=== PATIENT | female | born 1945 | race Caucasian/White ===

== ENCOUNTER 2022-07-09 11:10 | Inpatient (IN) | payer MEDICARE, OTHER ==
[~2022-07-09] VITALS: Ht 167.6 cm; Wt 72.8 kg
[2022-07-09] MEDS ORDERED: SODIUM CHLORIDE 0.9% 1000ML 1,000 ML ONE (11:44)
[2022-07-09] MEDS ORDERED: SODIUM CHLORIDE 0.9% 1000ML 1,000 ML IV ONE (12:00)
[2022-07-09 12:57] LABS: ALBUMIN/GLOBULIN RATIO 0.8 (0.8-2.0); BILIRUBIN,DIRECT 0.7 mg/dL (0.0-0.5); CREATININE, SERUM 0.66 mg/dL (0.57-1.11)
[2022-07-09 12:59] LABS: CALCIUM 6.6 mg/dL (8.4-10.2)
[2022-07-09 13:03] LABS: CREATINE KINASE MB 1.8 ng/mL (0-5.0)
[2022-07-09] MEDS ORDERED: IOPAMIDOL 370 MG/ML 100 ML INFUS..BTL INJ ONE (13:57)
[2022-07-09 14:16] LABS: BASOPHILS % 0.5 % (0.0-1.0); EOSINOPHILS # (AUTO) 0.1 (0.0-0.4); EOSINOPHILS % 0.6 % (0.0-6.0); HEMATOCRIT 27.4 % (34.2-44.1); HEMOGLOBIN 10.2 g/dL (12.0-16.0); LYMPHOCYTES # (AUTO) 0.6 (1.0-3.2); LYMPHOCYTES % 7.8 % (18.0-39.1); MEAN CORPUSCULAR HEMOGLOBIN 41.5 pg (28-32); MEAN CORPUSCULAR HGB CONC 37.2 g/dL (31-35); MEAN CORPUSCULAR VOLUME 111.4 fL (81-99); MONOCYTES # (AUTO) 0.5 (0.2-0.8); MONOCYTES % 6.1 % (4.4-11.3); NEUTROPHILS # (AUTO) 6.7 (2.1-6.9); NEUTROPHILS % 84.5 % (38.7-80.0); PLATELET COUNT 238 x10e3/uL (140-360); RED BLOOD COUNT 2.46 x10e6/uL (3.6-5.1); RED CELL DISTRIBUTION WIDTH 13.9 % (11.7-14.4)
[2022-07-09 14:32] LABS: PHOSPHORUS 4.7 MG/DL (2.3-4.7)
[2022-07-09 14:37] LABS: MAGNESIUM < 0.6 MG/DL (1.3-2.1)
[2022-07-09] MEDS ORDERED: POTASSIUM CHLORIDE 20 MEQ TAB CR PO STA ×2 (14:40→23:07)
[2022-07-09] MEDS ORDERED: CALCIUM GLUC 1 G/50 ML NACL 50 ML IV ONE (14:45)
[2022-07-09] MEDS ORDERED: MAGNESIUM SULFATE 2GM/50ML 50 ML IV ONE ×3 (15:00→23:15)
[2022-07-09 15:12] LABS: PLATELET MORPHOLOGY COMMENT FEW EDTA CLUMPING; RBC MORPHOLOGY COMMENT ABNORMAL; STOMATOCYTES SLIGHT
[2022-07-09 15:13] LABS: PLATELET ESTIMATE ADEQUATE
[2022-07-09] MEDS ORDERED: METOPROLOL TARTRATE INJ 1 MG/ML VIAL ONE (15:24)
[2022-07-09] MEDS ORDERED: METOPROLOL TARTRATE INJ 1 MG/ML VIAL IV ONE (15:30)
[2022-07-09] MEDS ORDERED: ONDANSETRON HCL INJ 2MG/ML 2ML 2 MG/ML VIAL IV PRN ×2 (15:30→23:15)
[2022-07-09] MEDS ORDERED: SODIUM CHLORIDE FLUSH 10 ML SYR INJ PRN (15:30)
[2022-07-09 17:51] VITALS: BP 138/89
[2022-07-09 18:30] VITALS: BP 138/89
[2022-07-09] MEDS ORDERED: [UNRECOGNIZED DRUG - REMARK] (18:35)
[2022-07-09 20:00] VITALS: BP 106/53
[2022-07-09] MEDS ORDERED: LIDOCAINE 4% PATCH TP PRN (23:15)
[2022-07-09] MEDS ORDERED: POTASSIUM CHLORIDE 20 MEQ TAB CR PO PRN (23:15)
[2022-07-09] MEDS ORDERED: SIMETHICONE 80 MG CHEW PO PRN (23:15)
[2022-07-09] MEDS ORDERED: BENZONATATE 100 MG CAP PO PRN (23:15)
[2022-07-09] MEDS ORDERED: HYDRALAZINE HCL 20 MG/ML VIAL IV PRN (23:15)
[2022-07-09] MEDS ORDERED: DEXTROSE 50% SYRINGE 50 ML IV PRN (23:15)
[2022-07-09] MEDS ORDERED: ALBUTEROL SULF 0.083% NEB SOLN 3 ML NEB NEB PRN (23:15)
[2022-07-09] MEDS ORDERED: ACETAMINOPHEN 325 MG TAB PO PRN (23:15)
[2022-07-09] MEDS ORDERED: DIPHENHYDRAMINE HCL 25 MG CAP PO PRN (23:15)
[2022-07-09] MEDS ORDERED: DOCUSATE SODIUM 100 MG CAP PO PRN (23:15)
[2022-07-09] MEDS ORDERED: MELATONIN 5 MG TABLET PO PRN (23:15)
[2022-07-09] MEDS ORDERED: IPRATROPIUM BROMIDE 0.02% 2.5 ML NEB NEB PRN (23:30)
[2022-07-10] VITALS (10 sets, daily range): BP systolic 129–152; BP diastolic 73–92
[2022-07-10] MEDS: CALCIUM CARBONATE 500 MG CHEWABLE TABS PO SCH ×4 (03:23→20:36)
[2022-07-10] MEDS ORDERED: MAGNESIUM SULFATE 2GM/50ML 50 ML IV ONE (04:00)
[2022-07-10] MEDS: MULTIVITAMINS- 12 INJECTION 10 ML, FOLIC ACID MDV 1 MG, THIAMINE HCL INJ 100 MG in SODI... IV SCH ×2 (05:29→09:22)
[2022-07-10 06:22] LABS: CHOL/HDL RATIO 2.8 (3.0-3.6)
[2022-07-10 06:46] LABS: BASOPHILS % 0.5 % (0.0-1.0); EOSINOPHILS # (AUTO) 0.1 (0.0-0.4); HEMATOCRIT 26.7 % (34.2-44.1); HEMOGLOBIN 9.7 g/dL (12.0-16.0); LYMPHOCYTES # (AUTO) 0.6 (1.0-3.2); MEAN CORPUSCULAR HEMOGLOBIN 40.9 pg (28-32); MEAN CORPUSCULAR HGB CONC 36.3 g/dL (31-35); MEAN CORPUSCULAR VOLUME 112.7 fL (81-99); MONOCYTES # (AUTO) 0.4 (0.2-0.8); MONOCYTES % 6.1 % (4.4-11.3); NEUTROPHILS % 80.9 % (38.7-80.0); PLATELET COUNT 225 x10e3/uL (140-360); RED BLOOD COUNT 2.37 x10e6/uL (3.6-5.1); RED CELL DISTRIBUTION WIDTH 14.6 % (11.7-14.4)
[2022-07-10 06:50] LABS: THYROID STIMULATING HORMONE 3.743 uIU/mL (0.350-4.940)
[2022-07-10 07:09] LABS: ALBUMIN 2.7 g/dL (3.5-5.0); ALBUMIN/GLOBULIN RATIO 0.8 (0.8-2.0); ANION GAP 17.3 mmol/L (8-16); CREATININE, SERUM 0.59 mg/dL (0.57-1.11); MAGNESIUM 1.5 MG/DL (1.3-2.1); PHOSPHORUS 4.2 MG/DL (2.3-4.7); POTASSIUM 3.3 mmol/L (3.5-5.1)
[2022-07-10 07:11] LABS: CALCIUM 6.7 mg/dL (8.4-10.2)
[2022-07-10] MEDS: CHOLECALCIFEROL 1,000 UNIT TAB PO SCH (09:11)
[2022-07-10] MEDS: PANTOPRAZOLE SOD 40 MG TABEC PO SCH (09:11)
[2022-07-10] MEDS ORDERED: SODIUM CHLORIDE 0.9% 1000ML 1,000 ML IV PRN (12:30)
[2022-07-10] MEDS ORDERED: CYANOCOBALAMIN INJ 1,000 MCG/ML VIAL IM SCH (13:00)
[2022-07-10] MEDS ORDERED: CALCIUM GLUCONATE 10% INJ 13.95 MEQ in SODIUM CHLORIDE 0.9% 100 ML IV ONE (13:00)
[2022-07-10] MEDS: ENOXAPARIN SOD INJ 40 MG/0.4 ML SYR SC SCH (18:19)
[2022-07-11] VITALS (8 sets, daily range): BP systolic 124–162; BP diastolic 73–88
[2022-07-11] MEDS ORDERED: SODIUM CHLORIDE 0.9% 1000ML 1,000 ML ONE (00:15)
[2022-07-11 06:04] LABS: BASOPHILS % 0.8 % (0.0-1.0); EOSINOPHILS # (AUTO) 0.1 (0.0-0.4); EOSINOPHILS % 2.3 % (0.0-6.0); HEMATOCRIT 26.9 % (34.2-44.1); HEMOGLOBIN 9.5 g/dL (12.0-16.0); LYMPHOCYTES # (AUTO) 0.5 (1.0-3.2); LYMPHOCYTES % 8.9 % (18.0-39.1); MEAN CORPUSCULAR HEMOGLOBIN 42.2 pg (28-32); MEAN CORPUSCULAR HGB CONC 35.3 g/dL (31-35); MEAN CORPUSCULAR VOLUME 119.6 fL (81-99); MONOCYTES # (AUTO) 0.4 (0.2-0.8); MONOCYTES % 6.6 % (4.4-11.3); NEUTROPHILS # (AUTO) 4.3 (2.1-6.9); PLATELET COUNT 180 x10e3/uL (140-360); RED BLOOD COUNT 2.25 x10e6/uL (3.6-5.1); RED CELL DISTRIBUTION WIDTH 14.4 % (11.7-14.4)
[2022-07-11 06:48] LABS: ALBUMIN 2.6 g/dL (3.5-5.0); ALBUMIN/GLOBULIN RATIO 0.8 (0.8-2.0); ANION GAP 15.5 mmol/L (8-16); CALCIUM 7.9 mg/dL (8.4-10.2); CREATININE, SERUM 0.6 mg/dL (0.57-1.11); MAGNESIUM 1.2 MG/DL (1.3-2.1); PHOSPHORUS 3.7 MG/DL (2.3-4.7); POTASSIUM 3.5 mmol/L (3.5-5.1)
[2022-07-11] MEDS: PANTOPRAZOLE SOD 40 MG TABEC PO SCH (08:25)
[2022-07-11] MEDS: CALCIUM CARBONATE 500 MG CHEWABLE TABS PO SCH ×2 (08:25→15:00)
[2022-07-11] MEDS: CHOLECALCIFEROL 1,000 UNIT TAB PO SCH (08:25)
[2022-07-11 08:59] LABS: PLATELET ESTIMATE ADEQUATE; PLATELET MORPHOLOGY COMMENT NORMAL; RBC MORPHOLOGY COMMENT NORMAL
[2022-07-11] MEDS ORDERED: MAGNESIUM SULFATE 2GM/50ML 50 ML IV ONE (11:00)
[2022-07-11] MEDS ORDERED: CALCIUM GLUCONATE 10% INJ 13.95 MEQ in SODIUM CHLORIDE 0.9% 100 ML IV ONE (11:30)
[2022-07-11] MEDS: MULTIVITAMINS- 12 INJECTION 10 ML, FOLIC ACID MDV 1 MG, THIAMINE HCL INJ 100 MG in SODI... IV SCH (12:11)
[2022-07-11] MEDS: ENOXAPARIN SOD INJ 40 MG/0.4 ML SYR SC SCH (16:16)
[2022-07-11] MEDS: MUPIROCIN 2% OINT 22 GM TUBE TOP SCH (16:17)
[2022-07-12] VITALS (10 sets, daily range): BP systolic 112–146; BP diastolic 71–94
[2022-07-12 06:08] LABS: BASOPHILS % 0.8 % (0.0-1.0); EOSINOPHILS # (AUTO) 0.1 (0.0-0.4); EOSINOPHILS % 2.4 % (0.0-6.0); HEMATOCRIT 26.3 % (34.2-44.1); HEMOGLOBIN 9.1 g/dL (12.0-16.0); LYMPHOCYTES # (AUTO) 0.6 (1.0-3.2); LYMPHOCYTES % 10.8 % (18.0-39.1); MEAN CORPUSCULAR HEMOGLOBIN 42.1 pg (28-32); MEAN CORPUSCULAR HGB CONC 34.6 g/dL (31-35); MEAN CORPUSCULAR VOLUME 121.8 fL (81-99); MONOCYTES # (AUTO) 0.3 (0.2-0.8); MONOCYTES % 6.7 % (4.4-11.3); NEUTROPHILS % 78.9 % (38.7-80.0); PLATELET COUNT 178 x10e3/uL (140-360); RED BLOOD COUNT 2.16 x10e6/uL (3.6-5.1); RED CELL DISTRIBUTION WIDTH 14.2 % (11.7-14.4)
[2022-07-12 06:34] LABS: ALBUMIN 2.4 g/dL (3.5-5.0); ALBUMIN/GLOBULIN RATIO 0.8 (0.8-2.0); ANION GAP 12.1 mmol/L (8-16); CREATININE, SERUM 0.63 mg/dL (0.57-1.11); MAGNESIUM 1.3 MG/DL (1.3-2.1); POTASSIUM 4.1 mmol/L (3.5-5.1)
[2022-07-12] MEDS: CHOLECALCIFEROL 1,000 UNIT TAB PO SCH (08:28)
[2022-07-12] MEDS: PANTOPRAZOLE SOD 40 MG TABEC PO SCH (08:28)
[2022-07-12] MEDS: MUPIROCIN 2% OINT 22 GM TUBE TOP SCH (08:30)
[2022-07-12] MEDS ORDERED: MUPIROCIN 2% OINT 22 GM TUBE TOP SCH (09:00)
[2022-07-12] MEDS: MULTIVITAMINS- 12 INJECTION 10 ML, FOLIC ACID MDV 1 MG, THIAMINE HCL INJ 100 MG in SODI... IV SCH (11:06)
[2022-07-12 12:14] LABS: PLATELET ESTIMATE ADEQUATE; PLATELET MORPHOLOGY COMMENT NORMAL; RBC MORPHOLOGY COMMENT NORMAL
[2022-07-12] MEDS: ENOXAPARIN SOD INJ 40 MG/0.4 ML SYR SC SCH (17:00)
== END 2022-07-12 18:50 | disposition home or self-care (01) | DRG 605 ==
LOC: FSED 11:14 → ERHOLD 15:36 → MED/SURG2 17:44
PROVIDERS: ADMIT Internal Medicine; ATTEND Internal Medicine
DX: S00.03XA Contusion of scalp, initial encounter (principal); E87.1 Hypo-osmolality and hyponatremia; M48.54XA Collapsed vertebra, not elsewhere classified, thoracic region, initial encounter for fracture; E44.0 Moderate protein-calorie malnutrition; I10 Essential (primary) hypertension; C54.1 Malignant neoplasm of endometrium; I89.0 Lymphedema, not elsewhere classified; D64.9 Anemia, unspecified; N28.1 Cyst of kidney, acquired; E83.51 Hypocalcemia; E83.42 Hypomagnesemia; R29.6 Repeated falls; E86.0 Dehydration; W18.30XA Fall on same level, unspecified, initial encounter; F10.20 Alcohol dependence, uncomplicated; K76.0 Fatty (change of) liver, not elsewhere classified; Z20.822 Contact with and (suspected) exposure to COVID-19; Z68.25 Body mass index [BMI] 25.0-25.9, adult
CPT/HCPCS: 36415; 70450; 70551; 71260; 72125; 74177; 80053; 80061; 82140; 82248; 82550; 82553; 82607; 82746; 83036; 83735; 83880; 84100; 84443; 84484; 85025; 93005; 93880; 96361; 99252; 99284; J0610; J1650; J3411; J3420; J3475; J7030; J7050; Q9967

== ENCOUNTER → 2022-08-14 | Day surgery (SDC) | payer MEDICARE ==
[~2022-08-14] MED LIST: B-1100 M1; B-121000 MC2; FENTANYL CITRATE/PF 100MCG/2 ML INJ ONE; LACTATED RINGER'S 1,000 ML ONE; LIDOCAINE HCL 2% LOCAL INJ 5 ML SDV VIAL INJ ONE; METOCLOPRAMIDE HCL 10 MG/2ML VIAL ONE; MULTI-VITAMIN1 EACH PO; POVIDONE IODINE 0.05% 0.05 % ML PO ONE; PROPOFOL IV EMULSION 10 MG/ML 20 ML VIAL ONE; PROPOFOL IV EMULSION 10 MG/ML 50 ML VIAL IV ONE; PROPOFOL IV EMULSION 50 ML IV ONE; VITAMIN D31 ML; [UNRECOGNIZED DRUG - REMARK]
[2022-08-14 12:28] VITALS: TEMP 97.1
[2022-08-14 13:00] VITALS: BP 173/89; PULSE 80; RESP 16; O2SAT 98
== END | disposition home or self-care (01) ==
LOC: OR 09:29
PROVIDERS: ATTEND Internal Medicine Gastroenterology
DX: D64.9 Anemia, unspecified (principal); D12.0 Benign neoplasm of cecum; K31.7 Polyp of stomach and duodenum; K29.50 Unspecified chronic gastritis without bleeding; K63.89 Other specified diseases of intestine; K20.90 Esophagitis, unspecified without bleeding; K57.30 Diverticulosis of large intestine without perforation or abscess without bleeding; K64.8 Other hemorrhoids; Z71.3 Dietary counseling and surveillance; I10 Essential (primary) hypertension; Z71.89 Other specified counseling; I89.0 Lymphedema, not elsewhere classified; Z88.6 Allergy status to analgesic agent; Z68.26 Body mass index [BMI] 26.0-26.9, adult; Z85.42 Personal history of malignant neoplasm of other parts of uterus
CPT/HCPCS: 43239; 45380; 45385; 83630; 83993; 87045; 87177; 87324; 87328; 87449; C9113; J2001; J2704 ×2; J2765; J3010; J7121; 45378

== ENCOUNTER 2022-08-26 11:28 | Emergency (ER) | payer MEDICARE ==
[~2022-08-26] VITALS: Ht 162.6 cm; Wt 70.8 kg
[~2022-08-26 11:28] MED LIST changes: -FENTANYL CITRATE/PF 100MCG/2 ML INJ ONE; -LACTATED RINGER'S 1,000 ML ONE; -LIDOCAINE HCL 2% LOCAL INJ 5 ML SDV VIAL INJ ONE; -METOCLOPRAMIDE HCL 10 MG/2ML VIAL ONE; -POVIDONE IODINE 0.05% 0.05 % ML PO ONE; -PROPOFOL IV EMULSION 10 MG/ML 20 ML VIAL ONE; -PROPOFOL IV EMULSION 10 MG/ML 50 ML VIAL IV ONE; -PROPOFOL IV EMULSION 50 ML IV ONE
[2022-08-26] MEDS ORDERED: LIDOCAINE HCL 1% LOCAL INJ 20 ML VIAL INJ ONE (12:30)
[2022-08-26] MEDS ORDERED: LIDOCAINE HCL 1% LOCAL INJ 20 ML VIAL ONE (12:49)
[2022-08-26 13:00] VITALS: O2SAT 95
[2022-08-26] MEDS ORDERED: CEPHALEXIN500 MG PO (13:38)
[2022-08-26] MEDS ORDERED: CEPHALEXIN MONOHYDRATE 250 MG CAP PO ONE (13:40)
[2022-08-26] MEDS ORDERED: BACITRACIN/POLYMYXIN 30 GM OINT TP SCH (13:45)
[2022-08-26] MEDS ORDERED: CEPHALEXIN MONOHYDRATE 250 MG CAP ONE (13:46)
[2022-08-26 13:55] VITALS: BP 180/88; PULSE 75; RESP 18
== END 2022-08-26 13:57 | disposition home or self-care (01) ==
LOC: FSED 11:57
DX: L02.512 Cutaneous abscess of left hand (principal)
CPT/HCPCS: 26010; 87071; 87205; 99283; J2001